=== PATIENT | male | born 1995 | race Caucasian/White ===

== ENCOUNTER 2021-07-15 11:53 | Emergency (ER) | payer OTHER ==
[~2021-07-15] VITALS: Ht 167.6 cm; Wt 59.0 kg
== END 2021-07-15 14:09 | disposition home or self-care (01) ==
LOC: ER 11:53
DX: J02.9 Acute pharyngitis, unspecified (principal); S62.101D Fracture of unspecified carpal bone, right wrist, subsequent encounter for fracture with routine healing; I50.20 Unspecified systolic (congestive) heart failure; G40.909 Epilepsy, unspecified, not intractable, without status epilepticus; Z79.899 Other long term (current) drug therapy; Z20.822 Contact with and (suspected) exposure to COVID-19
CPT/HCPCS: 29125; 87430; 99283-25

== ENCOUNTER 2021-09-27 14:02 | Emergency (ER) | payer OTHER ==
[~2021-09-27] VITALS: Ht 167.6 cm; Wt 56.7 kg
[~2021-09-27 14:02] MED LIST: KEPPRA250 M1 PO; LAMO100 PO
== END 2021-09-27 15:18 | disposition home or self-care (01) ==
LOC: ER 14:02
DX: S60.221A Contusion of right hand, initial encounter (principal); G40.909 Epilepsy, unspecified, not intractable, without status epilepticus; I50.20 Unspecified systolic (congestive) heart failure; F17.200 Nicotine dependence, unspecified, uncomplicated; Z79.899 Other long term (current) drug therapy; W18.09XA Striking against other object with subsequent fall, initial encounter
CPT/HCPCS: 73130; 99283-25

== ENCOUNTER 2021-11-04 11:47 | Emergency (ER) | payer OTHER ==
[~2021-11-04] VITALS: Ht 167.6 cm; Wt 56.7 kg
[2021-11-04] MEDS ORDERED: LEVE500 PO (14:13)
[2021-11-04] MEDS ORDERED: Lamictal100 MG PO (14:13)
== END 2021-11-04 14:20 | disposition home or self-care (01) ==
LOC: ER 11:47
DX: G40.909 Epilepsy, unspecified, not intractable, without status epilepticus (principal); Z76.0 Encounter for issue of repeat prescription; F17.210 Nicotine dependence, cigarettes, uncomplicated
CPT/HCPCS: 99281